=== PATIENT | female | born 2000 | race Caucasian/White ===

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

== ENCOUNTER 2022-10-29 17:02 | Emergency (ER) | payer SELFPAY ==
[~2022-10-29] VITALS: Ht 157.5 cm; Wt 56.8 kg
[~2022-10-29 17:02] MED LIST: CITA10TA99 PO
[2022-10-29] MEDS ORDERED: IBUPROFEN 600 MG TABLET PO ONE (17:15)
[2022-10-29] MEDS ORDERED: ACETAMINOPHEN 500 MG TABLET PO ONE (17:15)
[2022-10-29 17:24] LABS: COVID AG,FIA SOURCE NASOPHARYNGEAL
[2022-10-29 17:48] LABS: RAPID GROUP A STREP NEGATIVE (NEGATIVE)
[2022-10-29 17:57] LABS: INFLUENZA TYPE A NEGATIVE FOR TYPE A (NEGATIVE); INFLUENZA TYPE B NEGATIVE FOR TYPE B (NEGATIVE)
[2022-10-29 18:28] VITALS: BP 105/56
[2022-10-29] MEDS ORDERED: IBUP-1554 PO (18:58)
[2022-10-29] MEDS ORDERED: GUAIFDM PO (18:58)
[2022-10-29] MEDS ORDERED: ACET-66 PO (18:58)
== END 2022-10-29 19:33 | disposition home or self-care (01) ==
LOC: EMS 17:02
DX: J06.9 Acute upper respiratory infection, unspecified (principal); F32.A Depression, unspecified; J18.9 Pneumonia, unspecified organism; Z20.822 Contact with and (suspected) exposure to COVID-19
CPT/HCPCS: 87430; 87804; 99283